=== PATIENT | male | born 1960 | race Caucasian/White ===

== ENCOUNTER 2017-03-19 05:46 | Emergency (ER) | payer BC ==
[2017-03-19] MEDS ORDERED: Clopidogrel 75 MG Tab PO ONE (05:48)
[2017-03-19] MEDS ORDERED: Aspirin 81 MG Tab.Chew PO ONE (05:48)
[2017-03-19] MEDS ORDERED: Sodium Chloride 0.9% 1,000 ML IV ONE (05:48)
[2017-03-19] MEDS ORDERED: Aspirin 81 MG Tab.Chew ONE (05:49)
[2017-03-19] MEDS ORDERED: Tenecteplase 50 MG Kit ONE (05:50)
[2017-03-19] MEDS ORDERED: Morphine 2 MG/ML Syringe IVPUSH ONE (05:53)
[2017-03-19] MEDS: Nitroglycerin 0.4 MG Tab.SL SL PRN ×2 (05:55→06:00)
[2017-03-19] MEDS ORDERED: Heparin Sodium 5,000 Units/ML Vial IVPUSH ONE (05:58)
[2017-03-19] MEDS ORDERED: Heparin Sodium 5,000 Units/ML Vial ONE (06:01)
[2017-03-19] MEDS ORDERED: Heparin Sod,Pork In 0.45% Nacl 25,000 UNIT/500 ML IV.SOLN IV ONE (06:03)
[2017-03-19] MEDS ORDERED: Tenecteplase 50 MG Kit IV STA (06:10)
[2017-03-19 06:19] LABS: CHLORIDE,CL 110 mmol/L (98-110); SODIUM,NA 144 mmol/L (136-146)
--- NOTE | 2017-03-19 06:27 | EDM.PDOC ---
ED HPI GENERAL MEDICAL PROBLEM - General Chief Complaint: Chest Pain Stated Complaint: CHEST PAINS Time Seen by Provider: 03/19/17 06:23 Source of Information: Reports: Patient - History of Present Illness INITIAL COMMENTS - FREE TEXT/NARRATIVE: HISTORY AND PHYSICAL: History of present illness: [Generally healthy male with no chronic illness disease her medications presents with 20-30 minutes of chest pain he awoke with the chest pain became diaphoretic, he arrives by private vehicle tonight pain does radiate to the neck no radiation to arm or jaw No fever nausea vomiting shortness of breath or dizziness no palpitation ] Patient has smoking history admits to occasional alcohol Review of systems: As per history of present illness and below otherwise all systems reviewed and negative. Past medical history: As per history of present illness and as reviewed below otherwise noncontributory. Surgical history: As per history of present illness and as reviewed below otherwise noncontributory. Social history: No reported history of drug or alcohol abuse. Family history: As per history of present illness and as reviewed below otherwise noncontributory. Physical exam: HEENT: Atraumatic, normocephalic, pupils reactive, negative for conjunctival pallor or scleral icterus, mucous membranes moist, throat clear, neck supple, nontender, trachea midline. Lungs: Clear to auscultation, breath sounds equal bilaterally, chest nontender. Heart: S1S2, regular, negative for clicks, rubs, or JVD. Abdomen: Soft, nondistended, nontender. Negative for masses or hepatosplenomegaly. Negative for costovertebral tenderness. Pelvis: Stable nontender. Genitourinary: Deferred. Rectal: Deferred. Extremities: Atraumatic, negative for cords or calf pain. Neurovascular unremarkable. Neuro: Awake, alert, oriented. Cranial nerves II through XII unremarkable. Cerebellum unremarkable. Motor and sensory unremarkable throughout. Exam nonfocal. Diagnostics: [Lab as below EKG-ST elevation EKG 15 minutes post TNK--no ST elevation Chest 1 view ] Therapeutics: [1 L normal saline bolus Aspirin 324 mg chewable Nitroglycerin 0.4 sublingual 2 Morphine 2 mg IV Plavix 300 mg by mouth Heparin 4000 bolus followed by drip TNKase provided ] Impression: [Stemi] Pain resolved at this time Definitive disposition and diagnosis as appropriate pending reevaluation and review of above. chest pain Pain Score (Numeric/FACES): 9 - Related Data Allergies Allergy/AdvReac Type Severity Reaction Status Date / Time No Known Allergies Allergy Verified 03/19/17 06:14 Home Meds: Home Meds . [No Known Home Meds] 03/19/17 [History] Past Medical History HEENT History: Reports: None Cardiovascular History: Reports: None Respiratory History: Reports: None Gastrointestinal History: Reports: None Genitourinary History: Reports: None Musculoskeletal History: Reports: None Neurological History: Reports: None Psychiatric History: Reports: None Endocrine/Metabolic History: Reports: None Hematologic History: Reports: None Immunologic History: Reports: None Oncologic (Cancer) History: Reports: None Dermatologic History: Reports: None - Infectious Disease History Infectious Disease History: Reports: None Social & Family History - Family History Family Medical History: Noncontributory - Tobacco Use Smoking Status *Q: Current Every Day Smoker Years of Tobacco use: 12 Packs/Tins Daily: 0.5 - Caffeine Use Caffeine Use: Reports: Coffee - Recreational Drug Use Recreational Drug Use: No ED ROS GENERAL - Review of Systems Review Of Systems: ROS reveals no pertinent complaints other than HPI. ED EXAM, GENERAL - Physical Exam Exam: See Below Course - Vital Signs Last Recorded V/S: Last Vital Signs Temp 96.8 F 03/19/17 05:50 Pulse 72 03/19/17 05:50 Resp 18 03/19/17 05:50 BP 142/102 H 03/19/17 06:00 Pulse Ox 97 03/19/17 05:50 - Orders/Labs/Meds Orders: Active Orders 24 hr Category Date Time Status CXR [Chest 1V Frontal] [CR] Stat Exams 03/19/17 05:58 Taken CKMB [CHEM] Stat Lab 03/19/17 05:40 Results COMPREHENSIVE METABOLIC PN,CMP [CHEM] Stat Lab 03/19/17 05:40 Results CREATINE KINASE,CK [CHEM] Stat Lab 03/19/17 05:40 Results TROPONIN I [CHEM] Stat Lab 03/19/17 05:40 Results UA W/MICROSCOPIC [URIN] Stat Lab 03/19/17 05:49 Uncollected Nitroglycerin [Nitrostat] Med 03/19/17 05:48 Active 0.4 mg SL Q5M PRN Sodium Chloride 0.9% [Normal Saline] 1,000 ml Med 03/19/17 05:48 Active IV STAT Medication Orders Sodium Chloride (Normal Saline) 1,000 mls @ 999 mls/hr IV STAT ONE Stop: 03/19/17 06:48 Last Admin: 03/19/17 05:50 Dose: 999 mls/hr Nitroglycerin (Nitrostat) 0.4 mg SL Q5M PRN PRN Reason: Chest Pain Last Admin: 03/19/17 06:00 Dose: 0.4 mg Admin: 03/19/17 05:55 Dose: 0.4 mg Labs: Laboratory Tests 03/19/17 03/19/17 Range/Units 05:40 05:40 WBC 11.54 H (4.0-11.0) K/uL RBC 5.51 (4.50-5.90) M/uL Hgb 17.5 H (13.0-17.0) g/dL Hct 49.7 (38.0-50.0) % MCV 90.2 (80.0-98.0) fL MCH 31.8 (27.0-32.0) pg MCHC 35.2 (31.0-37.0) g/dL RDW Std Deviation 45.6 (28.0-62.0) fl RDW Coeff of Stefani 14 (11.0-15.0) % Plt Count 205 (150-400) K/uL MPV 9.70 (7.40-12.00) fL Neut % (Auto) 43.9 L (48.0-80.0) % Lymph % (Auto) 41.7 H (16.0-40.0) % Hancock % (Auto) 10.8 (0.0-15.0) % Eos % (Auto) 2.9 (0.0-7.0) % Baso % (Auto) 0.7 (0.0-1.5) % Neut # (Auto) 5.1 (1.4-5.7) K/uL Lymph # (Auto) 4.8 H (0.6-2.4) K/uL Hancock # (Auto) 1.3 H (0.0-0.8) K/uL Eos # (Auto) 0.3 (0.0-0.7) K/uL Baso # (Auto) 0.1 (0.0-0.1) K/uL Nucleated RBC % 0.0 /100WBC Nucleated RBCs # 0 K/uL Sodium 144 (136-146) mmol/L Potassium 4.4 (3.5-5.1) mmol/L Chloride 110 (98-110) mmol/L Carbon Dioxide 22 (21-31) mmol/L BUN 18 (6.0-23.0) mg/dL Creatinine 1.1 (0.6-1.5) mg/dL Est Cr Clr Drug Dosing 89.26 mL/min Estimated GFR (MDRD) > 60.0 ml/min Glucose 133 H (60-110) mg/dL Calcium 9.2 (8.8-10.8) mg/dL Total Bilirubin 1.0 (0.1-1.5) mg/dL AST 21 (5-40) IU/L ALT 23 (8-54) IU/L Alkaline Phosphatase 60 (40-150) Creatine Kinase 96 (9-236) IU/L Total Protein 7.6 (6.0-8.0) g/dL Albumin 4.4 (3.5-5.0) g/dL Globulin 3.2 (2.0-3.5) g/dL Albumin/Globulin Ratio 1.4 (1.3-2.8) Meds: Medications Generic Name Dose Route Start Last Admin Trade Name Freq PRN Reason Stop Dose Admin Sodium Chloride 1,000 mls @ 999 mls/hr 03/19/17 05:48 03/19/17 05:50 Normal Saline IV 03/19/17 06:48 999 mls/hr STAT ONE Administration Nitroglycerin 0.4 mg 03/19/17 05:48 03/19/17 06:00 Nitrostat SL 0.4 mg Q5M PRN Administration Chest Pain Discontinued Medications Generic Name Dose Route Start Last Admin Trade Name Freq PRN Reason Stop Dose Admin Aspirin 324 mg 03/19/17 05:48 03/19/17 05:51 Aspirin PO 03/19/17 05:49 324 mg ONETIME ONE Administration Aspirin Confirm 03/19/17 05:49 Aspirin Administered 03/19/17 05:50 Dose 324 mg .ROUTE .STK-MED ONE Clopidogrel Bisulfate 300 mg 03/19/17 05:48 03/19/17 05:58 Plavix PO 03/19/17 05:49 300 mg ONETIME ONE Administration Heparin Sodium (Porcine) 5,000 units 03/19/17 05:58 03/19/17 06:02 Heparin Sodium IVPUSH 03/19/17 05:59 4,000 units ONETIME ONE Administration Heparin Sodium (Porcine) Confirm 03/19/17 06:01 Heparin Sodium Administered 03/19/17 06:02 Dose 5,000 units .ROUTE .STK-MED ONE Heparin Sod,Pork In 0.45% Nacl Confirm 03/19/17 06:03 03/19/17 06:06 Heparin-1/2ns 25,000 Units/500 Administered 03/19/17 06:04 12 unit Dose Administration 25,000 unit in 500 mls @ as directed IV .STK-MED ONE Morphine Sulfate 2 mg 03/19/17 05:53 03/19/17 05:58 Morphine IVPUSH 03/19/17 05:54 2 mg ONETIME ONE Administration Tenecteplase Confirm 03/19/17 05:50 Tnkase Administered 03/19/17 05:51 Dose 50 mg .ROUTE .STK-MED ONE Tenecteplase 50 mg 03/19/17 06:10 03/19/17 06:14 Tnkase IV 03/19/17 06:11 50 mg NOW STA Administration Protocol Departure - Departure Time of Disposition: 06:27 Disposition: DC/Tfer to Other 70 Condition: Fair Clinical Impression: STEMI (ST elevation myocardial infarction) - Discharge Information Referrals: PCP,None [Primary Care Provider] - - My Orders Last 24 Hours: My Active Orders 03/19/17 05:40 CKMB [CHEM] Stat COMPREHENSIVE METABOLIC PN,CMP [CHEM] Stat CREATINE KINASE,CK [CHEM] Stat TROPONIN I [CHEM] Stat 03/19/17 05:48 Nitroglycerin [Nitrostat] 0.4 mg SL Q5M PRN Sodium Chloride 0.9% [Normal Saline] 1,000 ml IV STAT 03/19/17 05:49 UA W/MICROSCOPIC [URIN] Stat 03/19/17 05:58 CXR [Chest 1V Frontal] [CR] Stat - Assessment/Plan Last 24 Hours: My Active Orders 03/19/17 05:40 CKMB [CHEM] Stat COMPREHENSIVE METABOLIC PN,CMP [CHEM] Stat CREATINE KINASE,CK [CHEM] Stat TROPONIN I [CHEM] Stat 03/19/17 05:48 Nitroglycerin [Nitrostat] 0.4 mg SL Q5M PRN Sodium Chloride 0.9% [Normal Saline] 1,000 ml IV STAT 03/19/17 05:49 UA W/MICROSCOPIC [URIN] Stat 03/19/17 05:58 CXR [Chest 1V Frontal] [CR] Stat
--- NOTE | 2017-03-22 13:32 | CR ---
EXAM DATE: 03/19/17 PATIENT'S AGE: 56 Patient: LELIA NOGUEIRA Facility: [facility], [place] Site . Site : [id number] Study: XRay Chest [id number] 6:03:10 AM Ordering Physician: Doctor Rodriguez Final Report: INDICATION: chest pain TECHNIQUE: Chest 1 view. COMPARISON: None FINDINGS: Cardiovascular and mediastinum: Heart size and vasculature are normal in caliber and appearance. Mediastinum is within normal limits. Lungs and pleural space: Lungs are clear. No sign of infiltrate or mass. No sign of pleural effusion. No pneumothorax. Bones and soft tissues: No significant findings. IMPRESSION: Unremarkable chest. Dictated by: Yoseph Barney MD @ 03/19/2017 06:04:57 (Electronic Signature) Report Signed by Proxy. [facility]
== END 2017-03-19 06:40 | disposition other institution (70) ==
LOC: MW.ED 05:46
DX: I21.3 ST elevation (STEMI) myocardial infarction of unspecified site (principal); F17.210 Nicotine dependence, cigarettes, uncomplicated
CPT/HCPCS: 71010; 80053; 82550; 82553; 84484; 85025; 93005; 96365; 96375; 99285; A9270; J1644; J2270; J3101; J7040; 99283